=== PATIENT | female | born 1990 | race Caucasian/White ===

== ENCOUNTER 2017-08-07 22:40 | Emergency (ER) | payer OTHER ==
[~2017-08-07] VITALS: Ht 165.1 cm; Wt 132.9 kg
[~2017-08-07 22:40] MED LIST: ALLEGRA60 MG PO; AUGMENTIN875 MG PO; ENDOCET 5-3251 EACH PO; IBUPROFEN800 MG PO; MEDROL DOSEPAK4 MG PO; SUDAFED 12-HOU120 MG PO; TIROSINT50 MCG PO; ZANTAC150 MG PO; [UNRECOGNIZED DRUG - OTHER] PO
[2017-08-07 23:47] LABS: ADD MIUA? YES; BILIRUBIN NEGATIVE; BLOOD MODERATE; COLOR YELLOW ((YELLOW)); GLUCOSE (STRIP) NEGATIVE; KETONES NEGATIVE; LEUKOCYTES NEGATIVE; NITRITE NEGATIVE; PROTEIN (STRIP) NEGATIVE; SPECIFIC GRAVITY 1.019 (1.000-1.030); UROBILINOGEN 0.2 MG/DL (0.2-1.0)
[2017-08-07 23:48] LABS: INTERNAL CONTROL VALID? YES
[2017-08-07 23:51] LABS: BACTERIA NONE SEEN /HPF; EPITHELIAL CELLS RARE /HPF; GRANULAR CASTS 0-5 /LPF; MUCUS NONE SEEN /LPF; RED BLOOD CELLS 0-5 /HPF (0-5); UCUL ADDED? NO; WHITE BLOOD CELLS 0-5 /HPF (0-5)
[2017-08-08] MEDS ORDERED: TORADOL10 MG PO (01:51)
[2017-08-08] MEDS ORDERED: FLEXERIL10 MG PO (01:51)
[2017-08-08 01:59] VITALS: BP 125/72
[2017-08-08] MEDS ORDERED: NO ROUTINE HOME MEDS (01:59)
== END 2017-08-08 02:02 | disposition home or self-care (01) ==
LOC: EXP 22:40 → EME 22:40 → EXP 08-08 02:02
PROVIDERS: Physician Assistant
DX: R10.9 Unspecified abdominal pain (principal); M54.5 Low back pain; R11.0 Nausea
CPT/HCPCS: 74176; 81003; 84703; 99281; 99284; J1885